=== PATIENT | male | born 1985 | race Caucasian/White ===

== ENCOUNTER 2023-04-07 20:11 | Emergency (ER) | payer BC ==
[2023-04-07 21:09] LABS: BASOPHILS ABSOLUTE AUTO 0.04 K/uL (0.00-0.10); BASOPHILS PERCENT AUTO 0.3 % (0.1-1.3); EOSINOPHILS ABSOLUTE AUTO 0.29 K/uL (0.00-0.40); EOSINOPHILS PERCENT AUTO 2.5 % (0.0-5.4); HEMATOCRIT 46.9 % (38.4-49.7); HEMOGLOBIN 16.6 g/dL (12.9-16.9); IMMATURE GRAN ABSOLUTE AUTO 0.03 K/uL (0.00-0.23); IMMATURE GRAN PERCENT AUTO 0.3 % (0.0-0.7); LYMPHOCYTES ABSOLUTE AUTO 2.64 K/uL (0.8-3.3); MEAN CORPUSCULAR HEMOGLOBIN 29.8 pg (31.6-35.5); MEAN CORPUSCULAR HGB CONC 35.4 g/dL (31.6-35.5); MEAN CORPUSCULAR VOLUME 84.2 fL (81.4-99.0); MONOCYTES ABSOLUTE AUTO 0.88 K/uL (0.20-0.90); MONOCYTES PERCENT AUTO 7.7 % (3.3-12.6); NEUTROPHILS ABSOLUTE AUTO 7.58 K/uL (1.0-7.6); NEUTROPHILS PERCENT AUTO 66.2 % (40.0-78.1); PLATELET COUNT,PLT 202 K/uL (130-375); RED BLOOD CELL COUNT 5.57 M/uL (4.14-5.76); WHITE BLOOD CELL COUNT,WBC 11.5 K/uL (3.2-11.0)
[2023-04-07 21:25] LABS: ANION GAP 10.5 mmol/L (5.0-14.0); CALCIUM 9.1 mg/dL (8.5-10.1); CREATININE 1.2 mg/dL (0.8-1.3); EST CRCL DRUG DOSING (CG) 82.33 mL/min; POTASSIUM,K 4.5 mmol/L (3.6-5.2)
== END 2023-04-07 22:42 | disposition home or self-care (01) ==
LOC: JP.ED 20:11
DX: N50.1 Vascular disorders of male genital organs (principal); Z86.16 Personal history of COVID-19; Z79.899 Other long term (current) drug therapy; Z88.1 Allergy status to other antibiotic agents
CPT/HCPCS: 36415; 76870; 80048; 83605; 85025; 86140; 93976; 99284